=== PATIENT | male | born 1985 | race Caucasian/White ===

== ENCOUNTER 2018-12-01 13:45 | Emergency (ER) | payer SELFPAY ==
[2018-12-01] MEDS ORDERED: NORMAL SALINE 1000 ML 1,000 ML IV ONE (14:08)
[2018-12-01] MEDS ORDERED: THIAMINE HCL 100 MG in NORMAL SALINE 50 ML IV ONE (14:08)
--- NOTE | 2018-12-01 14:10 | ER Document Report ---
ED General - General Stated Complaint: DIZZINESS Time Seen by Provider: 12/01/18 14:00 - HPI Notes: 32-year-old male with history of alcohol abuse to the emergency department via EMS with complaints of possible seizures this afternoon. Patient states that he remembers waking up this morning and taking 2 shots of vodka and then walking to the grocery store. He states he does not remember anything after that until he woke up with the medics. Per medics report, the patient was found having a seizure by bystanders. The bystanders called 911. When medics got to him he was alert and oriented. [facility] state that he had 3 separate seizures lasting several seconds apart while in transport. They gave patient 2.5 mg of IV Versed. Patient states that he has never had a seizure before. He states that he has been using alcohol fairly heavily for some time now. He states he has been using alcohol since he was 17 years old. He states that last night he drinks 750 mL of whiskey. He states that he has never tried to stop drinking alcohol and does not know if he is ever had an alcohol withdrawal related seizure before. He denies any other drug use. He denies any other family history of seizures. He denies any fevers, chills, chest pain, shortness of breath. He does admit that he feels "bad" all over. - Related Data Allergies/Adverse Reactions: Penicillins Allergy (Verified 02/06/18 14:15) Past Medical History - General Information source: Patient, Emergency Med Personnel - Social History Smoking Status: Current Every Day Smoker Frequency of alcohol use: Heavy Drug Abuse: None Family History: Reviewed & Not Pertinent Renal/ Medical History: Denies: Hx Peritoneal Dialysis Musculoskeletal Medical History: Reports Hx Musculoskeletal Deformity, Reports Hx Musculoskeletal Trauma Traumatic Medical History: Reports: Hx Fractures - Leg, Hx Traumatic Brain Injury Past Surgical History: Reports: Hx Orthopedic Surgery - Right shoulder Review of Systems - Review of Systems Constitutional: Malaise. denies: Chills, Fever EENT: No symptoms reported Cardiovascular: denies: Chest pain, Palpitations, Heart racing, Dyspnea, Syncope, Dizziness, Lightheaded Respiratory: denies: Cough, Short of breath Gastrointestinal: denies: Abdominal pain, Diarrhea, Nausea, Vomiting Neurological/Psychological: See HPI, Seizure - Possible seizure activity. denies: Headaches, Numbness, Tingling -: Yes All other systems reviewed and negative Physical Exam - Vital signs Vitals: Pulse Resp BP Pulse Ox 95 20 132/80 H 96 12/01/18 14:02 12/01/18 14:02 12/01/18 14:02 12/01/18 14:02 Interpretation: Hypertensive - General General appearance: Alert, Other - Patient is moderately somnolent. He goes in and out of sleep. He can be awakened with light touch and voice. In distress: None - HEENT Head: Normocephalic, Atraumatic Eyes: Normal Pupils: PERRL - Respiratory Respiratory status: No respiratory distress Chest status: Nontender Breath sounds: Normal Chest palpation: Normal - Cardiovascular Rhythm: Regular Heart sounds: Normal auscultation Murmur: No - Back Back: Normal, Nontender - Neurological Neuro grossly intact: Yes Cognition: Normal Orientation: AAOx4 [place] Coma Scale Eye Opening: Spontaneous Jessica Coma Scale Verbal: Oriented Jessica Coma Scale Motor: Obeys Commands [place] Coma Scale Total: 15 Speech: Normal Cranial nerves: Normal. No: Facial palsy, Forehead sparing, Gaze palsy, Sensory deficit, Tongue deviation Cerebellar coordination: Heel-quintana - No normal [id number] bilaterally. No leg drift. Motor strength normal: LUE, RUE, LLE, RLE Additional motor exam normals: Equal film writer. No: Pronator drift Sensory: Normal Notes: Patient is moderately somnolent but will easily wake up light touch and loud voice. - Psychological Associated symptoms: Normal affect, Normal mood - Skin Skin Temperature: Warm Skin Moisture: Dry Skin Color: Normal Course - Re-evaluation Re-evalutation: 12/01/18 17:39 Patient continues to rest quietly in stretcher in room. He has no seizure activity here in the emergency department. Noted alcohol level of 222. We will continue to monitor patient very closely. He has been given 100 mg of IV thiamine as well as a fluid bolus. 12/01/18 19:16 Went to round on patient. He had taken out his IV and left from the hospital. Nursing staff looked about the emergency department for him. He has not had any further convulsions or seizure-like activity since he came to the emergency department. I had advised that while drinking and also having any of these convulsion he could not drive. We have attempted to contact patient to return for further care but have not been successful. He never expressed any SI, HI or hallucinations. He eloped from the emergency department. - Vital Signs Vital signs: Temp Pulse Resp BP Pulse Ox 95 20 132/80 H 96 12/01/18 14:02 12/01/18 14:02 12/01/18 14:02 12/01/18 14:02 - Laboratory Result Diagrams: 12/01/18 13:54 12/01/18 13:54 Laboratory results interpreted by me: 12/01/18 12/01/18 13:54 13:54 RBC 4.04 L Hgb 12.8 L Hct 37.7 L Lymph % (Auto) 45.2 H Chloride 110 H Creatinine 1.30 H Alkaline Phosphatase 30 L Total Protein 6.0 L - Diagnostic Test Radiology reviewed: Image reviewed, Reports reviewed Discharge - Discharge Clinical Impression: Acute alcohol intoxication, Alcohol abuse Convulsion Qualifiers: Convulsion type: unspecified Qualified Code(s): R56.9 - Unspecified convulsions Disposition: ELOPED
[2018-12-01 14:27] VITALS: BP 132/80
[2018-12-01 15:16] LABS: ABSOLUTE EOSINOPHILS # (AUTO) 0.1 10^3/uL (0.0-0.6); ABSOLUTE LYMPHOCYTES (AUTO) 3.1 10^3/uL (0.5-4.7); ABSOLUTE MONOCYTES (AUTO) 0.4 10^3/uL (0.1-1.4); ABSOLUTE NEUT (AUTO) 3.1 10^3/uL (1.7-8.2); BASOPHILS % (AUTO) 0.7 % (0-2); EOSINOPHILS % (AUTO) 1.9 % (0-6); HEMATOCRIT 37.7 % (37.9-51.0); HEMOGLOBIN 12.8 g/dL (13.5-17.0); LYMPHOCYTES % (AUTO) 45.2 % (13-45); MEAN CORPUSCULAR HEMOGLOBIN 31.8 pg (27.0-33.4); MEAN CORPUSCULAR HGB CONC 34.1 g/dL (32.0-36.0); MEAN CORPUSCULAR VOLUME 93 fl (80-97); MONOCYTES % (AUTO) 6.1 % (3-13); PLATELET COUNT 283 10^3/uL (150-450); RED BLOOD COUNT 4.04 10^6/uL (4.35-5.55); RED CELL DISTRIBUTION WIDTH 12.8 % (11.5-14.0); SEGMENTED NEUTROPHILS % (AUTO) 46.1 % (42-78); TOTAL CELLS COUNTED % (AUTO) 100 %; WHITE BLOOD COUNT 6.8 10^3/uL (4.0-10.5)
[2018-12-01 15:23] LABS: ALBUMIN 3.9 g/dL (3.5-5.0); ALCOHOL 222 mg/dL (NONE DETECTED); ALKALINE PHOSPHATASE 30 U/L (38-126); ANION GAP 9 (5-19); ASPARTATE AMINO TRANSFERASE 46 U/L (17-59); BILIRUBIN,DIRECT 0.3 mg/dL (0.0-0.4); BILIRUBIN,TOTAL 0.3 mg/dL (0.2-1.3); BLOOD UREA NITROGEN 16 mg/dL (7-20); CALCIUM 8.8 mg/dL (8.4-10.2); CARBON DIOXIDE 25 mmol/L (22-30); CHLORIDE 110 mmol/L (98-107); GLUCOSE 93 mg/dL (75-110); POTASSIUM 4.2 mmol/L (3.6-5.0)
--- NOTE | 2018-12-01 15:40 | RADIOLOGY REPORT (SQ) ---
EXAM DESCRIPTION: CT HEAD WITHOUT COMPLETED DATE/TIME: 12/01/2018 3:29 pm REASON FOR STUDY: seizure COMPARISON: None. TECHNIQUE: Axial images acquired through the brain without intravenous contrast. Images reviewed wi th bone, brain and subdural windows. Additional sagittal and coronal reconstructions were generated. Images stored on PACS. All CT scanners at this facility use dose modulation, iterative reconstruction, and/or weight based d osing when appropriate to reduce radiation dose to as low as reasonably achievable (ALARA). [facility]: Dose Right [facility]: CareDose [facility]: Dose Right [facility]: Teradose 4D [facility]: [facility] RADIATION DOSE: CT Rad equipment meets quality standard of care and radiation dose reduction techniq ues were employed. CTDIvol: 48.6 mGy. DLP: 929 mGy-cm. mGy. LIMITATIONS: None. FINDINGS: VENTRICLES: Normal size and contour. CEREBRUM: No masses. No hemorrhage. No midline shift. No evidence for acute infarction. Normal gra y/white matter differentiation. No areas of low density in the white matter. CEREBELLUM: No masses. No hemorrhage. No alteration of density. No evidence for acute infarction. EXTRAAXIAL SPACES: No fluid collections. No masses. ORBITS AND GLOBE: No intra- or extraconal masses. Normal contour of globe without masses. CALVARIUM: No fracture. PARANASAL SINUSES: No fluid or mucosal thickening. SOFT TISSUES: No mass or hematoma. OTHER: No other significant finding. IMPRESSION: NORMAL BRAIN CT WITHOUT CONTRAST. EVIDENCE OF ACUTE STROKE: NO. COMMENT: Quality ID # [id number]: Final reports with documentation of one or more dose reduction techniques (e.g., Automated exposure control, adjustment of the mA and/or kV according to patient size, use of iterative reconstruction technique) TECHNICAL DOCUMENTATION: JOB ID: [id number] [employer]- All Rights Reserved Reading location - IP/workstation name: [email or web address]
== END 2018-12-01 19:16 | disposition left against medical advice (07) ==
LOC: ER 13:45
DX: R56.9 Unspecified convulsions (principal); F10.129 Alcohol abuse with intoxication, unspecified; R53.81 Other malaise; R42 Dizziness and giddiness; F17.200 Nicotine dependence, unspecified, uncomplicated
CPT/HCPCS: 99285; 96361; 96365; 36415; 80307; 85025; 80053; 70450; J3411; J7030